=== PATIENT | female | born 1935 | race Caucasian/White ===

== ENCOUNTER → 2018-04-03 | Outpatient (CLI) | payer MEDICARE ==
[~2018-04-03] MED LIST: DIATR MEGLU/DIATRIZOATE SODIUM 30 ML BOTTLE ONE; IOPAMIDOL-370 75 ML VIAL IV ONE
[2018-04-03 15:00] LABS: BASOPHILS % (AUTO) 0.9 % (0.0-5.0); EOSINOPHILS % (AUTO) 0.3 % (0.0-8.0); HEMATOCRIT 36.8 % (36-48); LYMPHOCYTES % (AUTO) 15.9 % (21.0-51.0); MEAN CORPUSCULAR HEMOGLOBIN 24.2 pg (27.0-33.0); MEAN CORPUSCULAR HGB CONC 32.4 g/dL (32.0-36.0); MEAN CORPUSCULAR VOLUME 74.8 fL (79-99); MONOCYTES % (AUTO) 7.5 % (3.0-13.0); NEUTROPHILS % (AUTO) 75.4 % (40.0-77.0); PLATELET COUNT (AUTO) 257 K/uL (130-400); RED BLOOD CELL COUNT(AUTO) 4.91 MIL/uL (4.00-5.50); RED CELL DISTRIBUTION WIDTH 20.6 % (11.0-15.5); WHITE BLOOD COUNT (AUTO) 11.5 K/uL (4.8-10.8)
[2018-04-03 15:17] LABS: ALBUMIN 3.7 g/dL (3.5-5.0); BILIRUBIN,TOTAL 0.5 mg/dL (0.2-1.0); POTASSIUM 4.2 mmol/L (3.5-5.1); TOTAL PROTEIN, SERUM 8.4 g/dL (6.0-8.3)
== END | disposition home or self-care (01) ==
LOC: RAH 14:29
PROVIDERS: ATTEND Internal Medicine Gastroenterology
DX: K43.9 Ventral hernia without obstruction or gangrene (principal); K56.609 Unspecified intestinal obstruction, unspecified as to partial versus complete obstruction; I70.90 Unspecified atherosclerosis
CPT/HCPCS: 36415; 74176; 80053; 82150; 83690; 85025; 86677; Q9963; Q9967